=== PATIENT | male | born 1960 | race African-American/Black ===

== ENCOUNTER 2019-05-21 08:45 | Inpatient (IN) | payer BC, OTHER ==
[2019-05-21 09:21] VITALS: BMI 27.4
--- NOTE | 2019-06-04 12:42 | HP ---
HISTORY OF PRESENT ILLNESS: The patient is a 59-year-old male, who has a several-month history of progressive right hip and groin pain without injury. He describes weightbearing pain, which has progressed almost to the point of incapacitation requiring use of crutches, it causes severe pain and causes difficulty walking, getting dressed, and sleeping. He has had progressive symptoms despite rest, restriction of activities, and use of pain medication. PAST MEDICAL HISTORY: The patient also has a history of degenerative arthritis of both knees. He denies any other major medical problems. MEDICATIONS: He is currently requiring no specific routine medications. ALLERGIES: NO KNOWN ALLERGIES. PHYSICAL EXAMINATION: GENERAL: Reveals a healthy male. HEENT: Unremarkable. NECK: Supple. CHEST: Clear. HEART: Regular rate and rhythm. ABDOMEN: Soft, nontender. RECTAL: Deferred. GENITAL: Deferred. EXTREMITIES: Pertinent findings with the right hip. Leg lengths are equal. There is tenderness in the anterior hip. There is a right antalgic gait. There is decreased range of motion of the right hip and groin, pain with internal rotation of the hip. Neurovascular exam is intact. DIAGNOSTIC STUDIES: X-rays of the right hip reveal degenerative changes and a probable subchondral fracture with early collapse of the femoral head consistent with avascular necrosis. There are also vascular calcifications. X-rays of both knees reveal [id number] collapse medially of both knees with vascular calcifications. IMPRESSION: 1. Avascular necrosis and secondary degenerative arthritis, right hip. 2. Degenerative arthritis, both knees. PLAN: Right total hip replacement. He may ultimately require a total knee replacement. The nature of the surgery, length of recovery, and potential complications such as infection, loss of motion, incomplete relief, neurovascular injury, thromboembolic phenomena, leg-length discrepancy, possible transfusion, need for revision have been discussed in detail. Job ID: [id number] [facility]
[2019-06-08] MEDS ORDERED: Midazolam HCl 2 mg/2 ml Vial ONE (08:08)
[2019-06-08] MEDS ORDERED: Fentanyl 100 MCG/2 ML VIAL ONE ×3 (08:08→11:52)
[2019-06-08] MEDS ORDERED: Sodium Chloride 0.9% 100 ML ONE (08:21)
[2019-06-08] MEDS ORDERED: Tranexamic Acid 1,000 MG/10 ML VIAL ONE ×2 (08:21→11:29)
[2019-06-08] MEDS ORDERED: Promethazine HCl 25 MG/ML VIAL IM PRN ×2 (09:30→10:45)
[2019-06-08] MEDS ORDERED: Zolpidem Tartrate 5 MG TAB PO PRN ×2 (09:30→12:35)
[2019-06-08] MEDS ORDERED: Naloxone HCl 0.4 mg/ml Vial IV PRN (09:30)
[2019-06-08] MEDS ORDERED: HYDROcodone/Acetaminophen 5/325 mg Tablet PO PRN ×2 (09:30)
[2019-06-08] MEDS ORDERED: Fentanyl 5 mcg/Bup 0.075% Cadd 100 ML EPIDURAL SCH (09:30)
[2019-06-08] MEDS ORDERED: diphenhydrAMINE 50 MG/ML VIAL IM PRN (09:30)
[2019-06-08] MEDS ORDERED: traMADol HCl 50 MG TAB PO PRN ×3 (09:30→12:35)
[2019-06-08] MEDS ORDERED: diphenhydrAMINE 25 MG CAP PO PRN ×2 (09:30→12:35)
[2019-06-08] MEDS ORDERED: Naloxone HCl 0.4 mg/ml Vial IVP PRN (09:30)
[2019-06-08] MEDS ORDERED: Hydrocerin (Eucerin) Cream 120 gm Jar TOP PRN (09:30)
[2019-06-08] MEDS ORDERED: Promethazine HCl 25 MG SUPP PR PRN (09:30)
[2019-06-08] MEDS ORDERED: diphenhydrAMINE 50 MG/ML VIAL IVP PRN (09:30)
[2019-06-08] MEDS ORDERED: Ondansetron PF 4 MG/2 ML Vial IVP PRN ×2 (09:30→12:35)
[2019-06-08] MEDS ORDERED: Ropivacaine 0.2% HCl/PF 20 ML ONE (09:34)
[2019-06-08] MEDS ORDERED: Ondansetron HCl/PF 4 MG/2 ML Vial IVP PRN (10:45)
[2019-06-08] MEDS ORDERED: Promethazine HCl 25 MG/ML VIAL SLOW IVP PRN ×2 (10:45→12:35)
[2019-06-08] MEDS ORDERED: Tranexamic Acid 1,000 MG in Sodium Chloride 0.9% 100 ML IVPB SCH ×2 (11:30→12:35)
--- NOTE | 2019-06-08 11:57 | RAD ---
XR Hip Rt 2-3 View: 06/08/2019 11:22 AM CLINICAL INDICATION: Postop COMPARISON: 03/18/2019 FINDINGS: Right hip prosthesis is present, without hardware complication. There is adjacent soft tissue air. IMPRESSION: Postoperative right hip, without acute hardware complication.
[2019-06-08] MEDS ORDERED: Ketorolac Tromethamine 30 MG/ML VIAL ONE (11:59)
[2019-06-08] MEDS ORDERED: Labetalol HCl 100 MG/20 ML VIAL ONE (12:00)
[2019-06-08] MEDS ORDERED: Labetalol HCl 100 MG/20 ML VIAL SLOW IVP PRN (12:01)
[2019-06-08] MEDS ORDERED: Labetalol HCl 100 MG/20 ML VIAL SLOW IVP SCH (12:15)
[2019-06-08] MEDS ORDERED: Fentanyl 100 MCG/2 ML VIAL SLOW IVP PRN ×2 (12:35)
[2019-06-08] MEDS ORDERED: HYDROcodone/Acetaminophen 10/325 mg Tablet PO PRN (12:35)
[2019-06-08] MEDS ORDERED: Acetaminophen 325 MG TAB PO PRN (12:35)
[2019-06-08] MEDS: Ketorolac Tromethamine 30 MG/ML VIAL IVP SCH ×3 (13:03→23:40)
[2019-06-08] MEDS: Ketorolac Tromethamine 30 MG/ML VIAL IM SCH ×3 (13:03→23:47)
[2019-06-08] MEDS: Sodium Chloride 0.9% 1,000 ML IV SCH ×2 (13:04→23:40)
--- NOTE | 2019-06-08 13:53 | OP ---
DATE OF PROCEDURE: 06/08/2019 BATH MIX OPERATOR: Jennyfer Lloyd PA-C ANESTHESIA: General plus epidural. PREOPERATIVE DIAGNOSIS: Avascular necrosis and degenerative arthritis, right hip. POSTOPERATIVE DIAGNOSIS: Avascular necrosis and degenerative arthritis, right hip. PROCEDURE PERFORMED: Right total hip replacement with uncemented Mccalla Titanium acetabular component, 56 mm with X3 polyethylene liner and uncemented Niru Accolade II femoral stem #6 with 132-degree neck angle trunnion and -2.5 mm neck length 36-mm delta ceramic femoral head. DESCRIPTION OF PROCEDURE: After satisfactory anesthesia was induced in supine position, sequential compression device was placed on the nonoperative leg throughout the procedure. The patient was then placed in the lateral decubitus position and this position held with a hip positioning device. The patient's right hip was then prepped and draped in routine sterile fashion. Hip was posterolateral. A lateral curvilinear incision was centered over the greater trochanter, carried down through the subcutaneous tissues and bleeding points controlled with Bovie cautery. IT band and gluteal fascia was split in line with skin incision. A direct lateral approach to the hip joint was accomplished by dividing the anterior third of the gluteus medius and minimus tendons with Bovie cautery reflecting the single flap anteromedially along with the vastus lateralis. Anterior capsulectomy was performed. The hip was dislocated anteriorly. There was marked degenerative arthritis of the hip and evidence of collapse of the femoral head consistent with avascular necrosis. The femoral neck was osteotomized with oscillating saw using trial prosthesis as a guide. The acetabulum was exposed and cleaned of all soft tissue debris and rim osteophytes. It was then reamed down to bleeding subchondral bone to a total of 55 mm. It was felt that a 56-mm Niru Titanium acetabular completely could be placed in a press-fit fashion. The permanent component was then hammered in position. There was good fit and stability of the component and the permanent X3 polyethylene liner was snapped into position. The proximal femur was then exposed and opened with a box osteotome and rasped in sequence to accept a #6 Accolade II femoral rasp. Trial reduction with 132-degree neck angle trunnion and a -2.5 metal neck length 36 mm femoral head gave appropriate size, fit, and stability. The hip was again dislocated anteriorly and trial components were removed. The permanent #6 Accolade II femoral stem was then hammered in its position. There was again good fit and stability of the component. The permanent -2.5 mm neck length 36 mm delta ceramic femoral head was then placed on the trunnion and the hip again reduced and found to be stable. The hip was copiously irrigated with pulsatile lavage. The abductors were then repaired with interrupted #2 Vicryl. The IT band and gluteal fascia were closed with interrupted #2 Vicryl and a running #2 Quill. Subcutaneous tissues were closed with running 0 Quill suture and the skin closed with a running subcuticular 3-0 Monoderm and Surgicel skin adhesive. A sterile dressing was applied and the patient turned to the supine position with pillow placed between his legs. Sequential compression devices were placed on his operated leg and he was awakened and taken to the recovery room in stable condition. There were no apparent intraoperative complications. The estimated blood loss was 300 mL. Job ID: [id number]
[2019-06-08] MEDS: HYDROcodone/Acetaminophen 10/325 mg Tablet PO PRN ×2 (13:58→20:28)
[2019-06-08] MEDS ORDERED: PHENYLEPHRINE-NS 100 MCG/ML 10 ML SYRINGE ONE (15:09)
[2019-06-08] MEDS ORDERED: Lidocaine 1.5% w/Epi 1:200K 30 ML VIAL (Epid Use) ONE (15:09)
[2019-06-08] MEDS ORDERED: Ondansetron PF 4 MG/2 ML Vial ONE (15:09)
[2019-06-08] MEDS ORDERED: Rocuronium Bromide 10 MG/ML (10ML VIAL) ONE (15:09)
[2019-06-08] MEDS ORDERED: PROPOFOL 200 MG/20 ML VIAL ONE (15:09)
[2019-06-08] MEDS ORDERED: Lidocaine 1% PF 5 ML VIAL ONE (15:09)
[2019-06-08] MEDS ORDERED: Glycopyrrolate 0.2 MG/ML 5 ML SYRINGE ONE (15:09)
--- NOTE | 2019-06-08 15:24 | PDOC.HOSPP ---
- Subjective Encounter Date: 06/08/19 Encounter Time: 15:00 Subjective: Consultation for medical management post right hip replacement today performed by Dr. Escobedo. Denies past medical history other than diabetes which he says is controlled via lifestyle. Denies ever being on medication for diabetes. Reports sudden onset of right hip pain which progressively gotten worse to the point it interfered with his ADLs. Reports pain limited his mobility. 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 PCP is Ny Powers. - Objective Vital Signs & Weight: Vital Signs (12 hours) Temp Pulse Resp BP Pulse Ox 06/08/19 14:58 83 146/92 H 06/08/19 12:40 98.2 F 76 20 160/88 H 95 Weight Weight 74.843 kg I&O: 06/07/19 06/08/19 06/09/19 06:59 06:59 06:59 Intake Total 200 Output Total 200 Balance 0 Hospitalist ROS - Review of Systems Constitutional: reports: weakness, other. denies: fever, chills, sweats, malaise Eyes: denies: pain, vision change, conjunctivae inflammation, eyelid inflammation, redness, other ENT: denies: ear pain, ear discharge, nose pain, nose discharge, nose congestion , mouth pain, mouth swelling, throat pain, throat swelling, other Respiratory: denies: cough, dry, shortness of breath, hemoptysis, SOB with excertion, pleuritic pain, sputum, wheezing, other Cardiovascular: denies: chest pain, palpitations, orthopnea, paroxysmal noc. dyspnea, edema, light headedness, other Gastrointestinal: denies: nausea, vomiting, abdominal pain, diarrhea, constipation, melena, hematochezia, other Genitourinary: denies: dysuria, frequency, incontinence, hematuria, retention, other Musculoskeletal: reports: leg pain (Reports worsening right hip pain, sudden onset, denies injury/trauma.) Skin: denies: rash, lesions, kiel, bruising, other Neurological: denies: weakness, numbness, incoordination, change in speech, confusion, seizures, other - Medication Medications: Active Medications Generic Name Dose Route Start Last Admin Trade Name Freq PRN Reason Stop Dose Admin Hydrocodone Bitart/Acetaminophen 2 tab 11/04/19 12:35 06/08/19 13:58 [place] 10/325 PO 2 tab Q4H PRN Administration Severe Pain (7-10) Sodium Chloride 1,000 mls @ 100 mls/hr 06/08/19 12:35 06/08/19 13:04 Normal Saline 0.9% IV Not Given .Q10H ELLY Ketorolac Tromethamine 30 mg 06/08/19 12:00 06/08/19 13:03 Toradol IVP 06/10/19 06:01 Not Given Q6HR ELLY Ketorolac Tromethamine 30 mg 06/08/19 12:35 06/08/19 13:03 Toradol IM 06/10/19 12:36 Not Given Q6HR ELLY - Exam Eye: PERRL ENT: moist mucosa Neck: supple, no lymphadenopathy Heart: RRR Respiratory: CTAB Gastrointestinal: soft Extremities - other findings: Right hip bandage, dry and intact Skin: normal turgor Neurological: normal sensation to touch, no focal deficits Musculoskeletal: normal strength Psychiatric: normal affect, A&O x 3 Hosp A/P (1) Diabetes mellitus Code(s): E11.9 - TYPE 2 DIABETES MELLITUS WITHOUT COMPLICATIONS Status: Chronic Qualifiers: Diabetes mellitus type: type 2 (2) Pain, joint, hip, right Code(s): M25.551 - PAIN IN RIGHT HIP Status: Acute - Plan old records reviewed/req, plan discussed w/ family Accuchecks ACHS, will monitor blood sugar, sliding scale as needed. Basic metobolic panel and CBC in AM. Thank you for the consultation, we will follow patient through this admission.
[2019-06-08] MEDS ORDERED: Dextrose 50% Abboject 50 ML SYRINGE SLOW IVP PRN (15:36)
[2019-06-08] MEDS ORDERED: HumaLOG 300 UNITS/3 ML VIAL SC PRN (15:36)
[2019-06-08] MEDS ORDERED: Dextrose 5% in Water 1,000 ML IV PRN (15:36)
[2019-06-08] MEDS: CEFAZOLIN 2 GM in Premix Bag 1 BAG IVPB SCH ×2 (16:26→23:39)
[2019-06-08] MEDS ORDERED: Vancomycin HCl 1 GM in Premix Bag 1 BAG IVPB SCH (20:00)
[2019-06-08] MEDS: Ferrous Gluconate 324 MG TAB PO SCH (20:29)
[2019-06-08] MEDS: Senokot S 8.6-50 MG TAB PO SCH (20:29)
[2019-06-08] MEDS: Aspirin 81 mg Enteric Coated Tablet PO SCH (20:29)
[2019-06-09 04:38] LABS: Hemoglobin 14.1 g/dL (14.0-18.0); Mean Corpuscular HGB CONC 34.1 g/dL (32.0-36.0); Mean Corpuscular Hemoglobin 31.9 pg (27.0-31.0); Mean Corpuscular Volume 93.7 fL (78.0-98.0); Mean Platelet Volume 6.8 fL (7.4-10.4); Platelet Count 239 thou/uL (130-400); RBC Distribution Width 12.4 % (11.5-14.5); Red Blood Cell (RBC) Count 4.42 mill/uL (4.70-6.10); White Blood Cell (WBC) Count 11.3 thou/uL (4.8-10.8)
[2019-06-09] MEDS: Ketorolac Tromethamine 30 MG/ML VIAL IVP SCH ×4 (06:02→23:19)
[2019-06-09] MEDS: Ketorolac Tromethamine 30 MG/ML VIAL IM SCH ×4 (06:02→23:01)
[2019-06-09] MEDS: Sodium Chloride 0.9% 1,000 ML IV SCH ×3 (07:20→23:01)
--- NOTE | 2019-06-09 08:29 | PRG ---
DATE OF SERVICE: 06/09/2019 SUBJECTIVE: is a 59-year-old male who is postop day 1 from right total hip arthroplasty. He is doing relatively well. He has no complaints of pain. He is comfortable. Epidural is working well. OBJECTIVE: VITAL SIGNS: Temperature 98.7, pulse 95, respiratory rate 18 and nonlabored, and blood pressure 138/84. GENERAL: He is alert and oriented to person, place, time, and situation, grossly nonfocal, responsive and appropriate with examiner. EXTREMITIES: His incision is clean. No strikethrough. No leg length discrepancies or malrotation. LABORATORY DATA: Hemoglobin and hematocrit 14.1 and 41.4. IMPRESSION: A 59-year-old male postop day 1 right total hip arthroplasty. PLAN: Continue current care. Probable discharge tomorrow after discontinuing Wahl and epidural. Job ID: [id number]
[2019-06-09] MEDS: Ferrous Gluconate 324 MG TAB PO SCH ×2 (08:58→19:52)
[2019-06-09] MEDS: Senokot S 8.6-50 MG TAB PO SCH ×2 (08:58→19:51)
[2019-06-09] MEDS: Aspirin 81 mg Enteric Coated Tablet PO SCH ×2 (08:58→19:52)
[2019-06-09] MEDS: Multivitamin W/ Minerals 1 TAB PO SCH (08:58)
[2019-06-09] MEDS: HYDROcodone/Acetaminophen 10/325 mg Tablet PO PRN (16:17)
--- NOTE | 2019-06-09 16:38 | PDOC.EVN ---
Event Note - Event Note Event Note: Pt sen for followup re: management of medical comorbidities. Denies any complaints. VSS. S1, S2, RRR. Lungs CTA. Pt s/p R hip surgery. No acute medical issues, will sign off. Please reconsult if needed.
[2019-06-09] MEDS ORDERED: Sodium Chloride 0.9% 1,000 ML IV SCH (18:45)
[2019-06-09 19:03] LABS: Hemoglobin 13.8 g/dL (14.0-18.0); Mean Corpuscular HGB CONC 35.3 g/dL (32.0-36.0); Mean Corpuscular Hemoglobin 32.1 pg (27.0-31.0); Platelet Count 215 thou/uL (130-400); Red Blood Cell (RBC) Count 4.29 mill/uL (4.70-6.10); White Blood Cell (WBC) Count 11.3 thou/uL (4.8-10.8)
[2019-06-09 19:21] LABS: ALT (SGPT) 11 U/L (8-55); AST (SGOT) 48 U/L (5-34); Albumin 3.4 g/dL (3.5-5.0); Alkaline Phosphatase 71 U/L (40-110); Anion Gap 16 mmol/L (10-20); BUN (Urea Nitrogen) 16 mg/dL (8.4-25.7); Bilirubin, Total 1.4 mg/dL (0.2-1.2); Calc. Creatinine Clearance 73 mL/min (70-130); Calcium 8.9 mg/dL (7.8-10.44); Carbon Dioxide 22 mmol/L (22-29); Chloride 98 mmol/L (98-107); Estimated GFR-MDRD 78; Globulin 4.3 g/dL (2.4-3.5); Glucose 94 mg/dL (70-105); Potassium 3.9 mmol/L (3.5-5.1); Protein, Total 7.7 g/dL (6.0-8.3); Sodium 132 mmol/L (136-145)
[2019-06-09 19:28] LABS: Band 2 % (5-11); Lymphocytes 11 % (21-51); MDiff Complete? YES; Monocytes 5 % (0-10); Neutrophil 79 % (42-75); Platelet Morphology Comment Appears Adequate; RBC Morphology Normal; Reactive Lymphocytes 2 % (0-10)
--- NOTE | 2019-06-09 20:07 | PDOC.EVN ---
Event Note - Event Note Event Note: Saw patient today around 1800 for tachycardia, low grade fever and drop in O2, nurse reports in 80's on RA, 93% on 2L NC. Patient in no apparent distress, feels warm to the touch, last tylenol given 2 hours prior for pain with the hydrocodone. Epidural removed today and patient states pain has increased today with movement. Dressing to right hip is dry and intact. Orders: 1L NS, CXR, UA (Patient has mcwilliams), CBC, Comp met, lactic acid ... will continue to monitor
[2019-06-09 20:18] LABS: Bilirubin Negative (Negative); Blood, Urine 2+ (Negative); Clarity Clear (Clear); Glucose, Urine (Dipstick) Normal (Negative); Leukocyte 75 Leu/uL (Negative); Nitrite Negative (Negative); Protein, Urine (Dipstick) 50 mg/dL (Neg-Trace); RBC/HPF Greater than 50 HPF (0-3); Squamous Epithelial 0-3 HPF (0-3); Urobilinogen Normal mg/dL (Less than 2)
[2019-06-09 20:20] LABS: Bacteria/HPF 1+ HPF (None Seen)
[2019-06-09 20:21] LABS: Urine Culture Reflex Yes Yes
[2019-06-10 04:23] LABS: Mean Corpuscular HGB CONC 34.9 g/dL (32.0-36.0); Mean Corpuscular Hemoglobin 32.3 pg (27.0-31.0); Mean Corpuscular Volume 92.6 fL (78.0-98.0); Platelet Count 177 thou/uL (130-400); Red Blood Cell (RBC) Count 3.72 mill/uL (4.70-6.10); White Blood Cell (WBC) Count 8.3 thou/uL (4.8-10.8)
[2019-06-10] MEDS: Ketorolac Tromethamine 30 MG/ML VIAL IVP SCH (05:27)
[2019-06-10 05:29] VITALS: TEMP 98.4
[2019-06-10] MEDS: Ketorolac Tromethamine 30 MG/ML VIAL IM SCH ×2 (06:10→14:20)
--- NOTE | 2019-06-10 07:49 | RAD ---
EXAM: Single view of the chest HISTORY: Decreased oxygen saturation COMPARISON: None FINDINGS: Single view of the chest shows a normal sized cardiomediastinal silhouette. Atelectasis is seen in the left lung base. There is no evidence of consolidation, mass, or pleural effusion. The bones are unremarkable. IMPRESSION: Left basilar atelectasis.
[2019-06-10 08:13] VITALS: BP 117/77
[2019-06-10] MEDS: Senokot S 8.6-50 MG TAB PO SCH (08:42)
[2019-06-10] MEDS: Aspirin 81 mg Enteric Coated Tablet PO SCH (08:42)
[2019-06-10] MEDS: Ferrous Gluconate 324 MG TAB PO SCH (08:42)
[2019-06-10] MEDS: Multivitamin W/ Minerals 1 TAB PO SCH (08:43)
[2019-06-10] MEDS ORDERED: HYDROcodone/Acetaminophen 10/325 mg Tablet PO PRN ×2 (12:32)
== END 2019-06-10 16:30 | disposition home or self-care (01) | DRG 470 ==
LOC: SURG A 06-08 07:01 → SJJU 06-08 12:29
PROVIDERS: ADMIT Orthopaedic Surgery; ATTEND Orthopaedic Surgery
PROC: 0SR904A Replacement of Right Hip Joint with Ceramic on Polyethylene Synthetic Substitute, Uncemented, Open Approach (ICD-10-PCS; principal; 2019-06-08)
DX: M16.11 Unilateral primary osteoarthritis, right hip (principal); M87.851 Other osteonecrosis, right femur; M17.0 Bilateral primary osteoarthritis of knee; E11.9 Type 2 diabetes mellitus without complications; R00.0 Tachycardia, unspecified; R50.9 Fever, unspecified
CPT/HCPCS: 36415; 36416; 71045; 80053; 81001; 83605; 85027; 86850; 86900; 86901; 87086; J0690; J1885; J2001; J2250; J2405; J2704; J2795; J3010; J3370; J3490

== ENCOUNTER 2019-05-21 08:55 | Outpatient (CLI) | payer BC, OTHER ==
[2019-05-21 10:41] LABS: #Basophils 0.1 thou/uL (0.0-0.2); #Eosinphils 0.3 thou/uL (0.0-0.7); #Lymphocytes 1.5 thou/uL (1.20-3.40); #Monocytes 0.8 thou/uL (0.11-0.59); %Basophils 1.1 % (0.0-1.0); %Eosinophils 5.2 % (0.0-10.0); %Lymphocytes 26.7 % (21.0-51.0); %Monocytes 13.9 % (0.0-10.0); %Neutrophils 53.2 % (42.0-75.0); Hemoglobin 16.9 g/dL (14.0-18.0); Mean Corpuscular HGB CONC 33.6 g/dL (32.0-36.0); Mean Corpuscular Hemoglobin 31.2 pg (27.0-31.0); Mean Corpuscular Volume 92.7 fL (78.0-98.0); Mean Platelet Volume 7.1 fL (7.4-10.4); Platelet Count 245 thou/uL (130-400); RBC Distribution Width 12.9 % (11.5-14.5); Red Blood Cell (RBC) Count 5.43 mill/uL (4.70-6.10); White Blood Cell (WBC) Count 5.6 thou/uL (4.8-10.8)
[2019-05-21 10:48] LABS: Prothrombin Time 13.6 SEC (12.0-14.7)
[2019-05-21 10:55] LABS: Bacteria/HPF None Seen HPF (None Seen); Bilirubin Negative (Negative); Blood, Urine Negative (Negative); Clarity Clear (Clear); Glucose, Urine (Dipstick) Normal (Negative); Leukocyte Negative Leu/uL (Negative); Nitrite Negative (Negative); Protein, Urine (Dipstick) Negative (Neg-Trace); RBC/HPF 0-3 HPF (0-3); Squamous Epithelial None Seen HPF (0-3); Urobilinogen Normal mg/dL (Less than 2); WBC/HPF 0-3 HPF (0-3)
[2019-05-21 11:01] LABS: Anion Gap 14 mmol/L (10-20); BUN (Urea Nitrogen) 6 mg/dL (8.4-25.7); Calc. Creatinine Clearance 0 mL/min (70-130); Calcium 10.2 mg/dL (7.8-10.44); Carbon Dioxide 26 mmol/L (22-29); Chloride 99 mmol/L (98-107); Estimated GFR-MDRD Greater than 90; Glucose 93 mg/dL (70-105); Potassium 3.8 mmol/L (3.5-5.1); Sodium 135 mmol/L (136-145)
== END 2019-05-21 08:56 | disposition home or self-care (01) ==
LOC: LABBT 08:55
PROVIDERS: ATTEND Orthopaedic Surgery
DX: Z01.818 Encounter for other preprocedural examination (principal); M16.11 Unilateral primary osteoarthritis, right hip; M87.051 Idiopathic aseptic necrosis of right femur
CPT/HCPCS: 80048; 81001; 85025; 85610; 87081; 93005; 93010

== ENCOUNTER 2020-10-14 14:56 | Inpatient (IN) | payer BC, OTHER ==
[~2020-10-14 14:56] MED LIST: Iopamidol-370 76% 500 ML 1 ML ONE
[2020-10-14 15:21] LABS: #Lymphocytes 1.1 thou/uL (1.20-3.40); #Monocytes 0.7 thou/uL (0.11-0.59); #Neutrophils 11.1 thou/uL (1.40-6.50); %Basophils 0.2 % (0.0-1.0); %Eosinophils 0.2 % (0.0-10.0); %Lymphocytes 8.5 % (21.0-51.0); %Monocytes 5.3 % (0.0-10.0); %Neutrophils 85.8 % (42.0-75.0); Hemoglobin 16.9 g/dL (14.0-18.0); Mean Corpuscular HGB CONC 34.2 g/dL (32.0-36.0); Mean Corpuscular Hemoglobin 31.9 pg (27.0-31.0); Mean Corpuscular Volume 93.3 fL (78.0-98.0); Mean Platelet Volume 7.1 fL (7.4-10.4); Platelet Count 237 thou/uL (130-400); RBC Distribution Width 13.2 % (11.5-14.5); Red Blood Cell (RBC) Count 5.31 mill/uL (4.70-6.10); White Blood Cell (WBC) Count 12.9 thou/uL (4.8-10.8)
[2020-10-14 15:44] LABS: ALT (SGPT) 11 U/L (8-55); AST (SGOT) 25 U/L (5-34); Albumin 3.5 g/dL (3.5-5.0); Alkaline Phosphatase 63 U/L (40-110); Anion Gap 18 mmol/L (10-20); BUN (Urea Nitrogen) 6 mg/dL (8.4-25.7); Bilirubin, Total 0.8 mg/dL (0.2-1.2); Calc. Creatinine Clearance 0 mL/min (70-130); Calcium 8.9 mg/dL (7.8-10.44); Carbon Dioxide 21 mmol/L (22-29); Chloride 101 mmol/L (98-107); Globulin 4.5 g/dL (2.4-3.5); Glucose 143 mg/dL (70-105); Potassium 3.6 mmol/L (3.5-5.1); Sodium 136 mmol/L (136-145)
[2020-10-14] MEDS ORDERED: Morphine 4 MG/ML VIAL ONE (15:44)
[2020-10-14] MEDS ORDERED: Ondansetron PF 4 MG/2 ML Vial ONE (15:44)
[2020-10-14 15:57] LABS: Lipase 4157 U/L (8-78)
[2020-10-14] MEDS ORDERED: Lactated Ringer's 1,000 ML IV SCH (18:45)
[2020-10-14] MEDS: Lactated Ringer's 1,000 ML IV SCH (19:45)
[2020-10-14 20:20] VITALS: BMI 27.3
[2020-10-14] MEDS: Morphine 4 MG/ML VIAL SLOW IVP PRN (21:05)
[2020-10-14] MEDS: Ondansetron PF 4 MG/2 ML Vial IVP PRN (21:05)
[2020-10-15] MEDS: hydrALAZINE 20 MG/ML VIAL SLOW IVP PRN ×2 (00:03→06:10)
[2020-10-15] MEDS: Lactated Ringer's 1,000 ML IV SCH ×4 (03:38→20:31)
[2020-10-15 05:00] LABS: SARS-CoV-2 PCR by NAA Not Detected (NotDetected)
[2020-10-15] MEDS: Morphine 4 MG/ML VIAL SLOW IVP PRN ×3 (06:08→20:31)
[2020-10-15] MEDS: Ondansetron PF 4 MG/2 ML Vial IVP PRN ×2 (06:08→13:21)
[2020-10-15 06:34] LABS: Hemoglobin 16.7 g/dL (14.0-18.0); Mean Corpuscular HGB CONC 34.7 g/dL (32.0-36.0); Mean Corpuscular Hemoglobin 32.4 pg (27.0-31.0); Mean Corpuscular Volume 93.3 fL (78.0-98.0); Mean Platelet Volume 7.4 fL (7.4-10.4); Platelet Count 202 thou/uL (130-400); RBC Distribution Width 13.3 % (11.5-14.5); Red Blood Cell (RBC) Count 5.16 mill/uL (4.70-6.10); White Blood Cell (WBC) Count 12.7 thou/uL (4.8-10.8)
[2020-10-15 06:48] LABS: ALT (SGPT) 10 U/L (8-55); AST (SGOT) 24 U/L (5-34); Albumin 3.3 g/dL (3.5-5.0); Alkaline Phosphatase 63 U/L (40-110); Anion Gap 17 mmol/L (10-20); BUN (Urea Nitrogen) 7 mg/dL (8.4-25.7); Bilirubin, Total 0.9 mg/dL (0.2-1.2); Calc. Creatinine Clearance 111 mL/min (70-130); Carbon Dioxide 21 mmol/L (22-29); Chloride 104 mmol/L (98-107); Globulin 4.3 g/dL (2.4-3.5); Glucose 104 mg/dL (70-105); Potassium 3.8 mmol/L (3.5-5.1); Protein, Total 7.6 g/dL (6.0-8.3); Sodium 138 mmol/L (136-145)
[2020-10-15 06:49] LABS: Band 2 % (5-11); Lymphocytes 7 % (21-51); MDiff Complete? YES; Monocytes 5 % (0-10); Neutrophil 86 % (42-75)
[2020-10-15] MEDS: Morphine 2 MG/ML VIAL SLOW IVP PRN (08:29)
[2020-10-15] MEDS: Enoxaparin Sodium 40 MG/0.4 ML SYRINGE SC SCH (08:30)
[2020-10-15] MEDS: Lisinopril 10 MG TAB PO SCH (10:09)
[2020-10-15] MEDS ORDERED: Lisinopril 10 MG TAB PO SCH (10:15)
[2020-10-15 16:31] LABS: Hemoglobin A1c 5.2 % (4.0-6.0)
[2020-10-15] MEDS: Ondansetron ODT 4 MG TAB PO PRN (20:31)
[2020-10-16] MEDS: Lactated Ringer's 1,000 ML IV SCH ×4 (06:25→23:54)
[2020-10-16] MEDS: Ondansetron ODT 4 MG TAB PO PRN (06:25)
[2020-10-16] MEDS: Morphine 4 MG/ML VIAL SLOW IVP PRN (06:26)
[2020-10-16] MEDS ORDERED: Metoprolol Tartrate 5 MG/5 ML VIAL ONE (06:59)
[2020-10-16] MEDS ORDERED: Adenosine 6 MG/2 ML VIAL IVP SCH ×2 (07:00→10:15)
[2020-10-16 07:11] LABS: INR-International Normal Ratio 1.2; PTT 29.2 sec (22.9-36.1); Prothrombin Time 15.1 sec (12.0-14.7)
[2020-10-16 07:13] LABS: ALT (SGPT) 10 U/L (8-55); AST (SGOT) 19 U/L (5-34); Alkaline Phosphatase 55 U/L (40-110); Anion Gap 14 mmol/L (10-20); BUN (Urea Nitrogen) 9 mg/dL (8.4-25.7); Bilirubin, Total 1.6 mg/dL (0.2-1.2); Calc. Creatinine Clearance 112 mL/min (70-130); Calcium 8.9 mg/dL (7.8-10.44); Carbon Dioxide 22 mmol/L (22-29); Chloride 103 mmol/L (98-107); Globulin 4.3 g/dL (2.4-3.5); Glucose 86 mg/dL (70-105); Potassium 3.1 mmol/L (3.5-5.1); Protein, Total 7.3 g/dL (6.0-8.3); Sodium 136 mmol/L (136-145)
[2020-10-16 07:24] LABS: ALT (SGPT) 8 U/L (8-55); AST (SGOT) 22 U/L (5-34); Albumin 3.2 g/dL (3.5-5.0); Alkaline Phosphatase 59 U/L (40-110); Anion Gap 17 mmol/L (10-20); BUN (Urea Nitrogen) 10 mg/dL (8.4-25.7); Bilirubin, Total 1.7 mg/dL (0.2-1.2); Calc. Creatinine Clearance 109 mL/min (70-130); Calcium 8.6 mg/dL (7.8-10.44); Carbon Dioxide 20 mmol/L (22-29); Chloride 104 mmol/L (98-107); Glucose 84 mg/dL (70-105); Potassium 3.5 mmol/L (3.5-5.1); Protein, Total 7.2 g/dL (6.0-8.3); Sodium 137 mmol/L (136-145)
[2020-10-16 07:28] LABS: Troponin I 0.023 ng/mL (< 0.028)
[2020-10-16 07:34] LABS: Magnesium 1.7 mg/dL (1.6-2.6); Phosphorus 3.1 mg/dL (2.3-4.7)
[2020-10-16 08:02] LABS: Hemoglobin 16.8 g/dL (14.0-18.0); Mean Corpuscular Hemoglobin 30.4 pg (27.0-31.0); Mean Platelet Volume 7.8 fL (7.4-10.4); Platelet Count 191 thou/uL (130-400); RBC Distribution Width 13.5 % (11.5-14.5); Red Blood Cell (RBC) Count 5.52 mill/uL (4.70-6.10); White Blood Cell (WBC) Count 10.3 thou/uL (4.8-10.8)
[2020-10-16 08:03] LABS: Band 1 % (5-11); Eosinophils 2 % (0-10); Lymphocytes 21 % (21-51); MDiff Complete? YES; Monocytes 7 % (0-10); Neutrophil 69 % (42-75)
[2020-10-16] MEDS: Enoxaparin Sodium 40 MG/0.4 ML SYRINGE SC SCH (08:51)
[2020-10-16] MEDS: Lisinopril 10 MG TAB PO SCH (08:51)
[2020-10-16] MEDS ORDERED: Magnesium 2 GM/50 ML 2 GM in Premix Bag 1 BAG IVPB SCH (09:30)
[2020-10-16] MEDS ORDERED: PHOS-NAK 1 PKT PACK PO SCH (09:30)
[2020-10-16] MEDS: Adenosine 6 MG/2 ML VIAL ONE ×2 (09:44→09:45)
[2020-10-16] MEDS ORDERED: Diltiazem 125 MG in Sodium Chloride 0.9% 100 ML IVPB SCH (10:00)
[2020-10-16] MEDS: Amiodarone 450 MG in Dextrose 5% in Water 250 ML IVPB SCH ×2 (12:26→21:44)
[2020-10-16 15:01] LABS: Magnesium 2.3 mg/dL (1.6-2.6); Phosphorus 3.7 mg/dL (2.3-4.7)
[2020-10-16 15:05] LABS: Troponin I 0.047 ng/mL (< 0.028)
[2020-10-16] MEDS: Ondansetron PF 4 MG/2 ML Vial IVP PRN (15:47)
[2020-10-16] MEDS: Morphine 2 MG/ML VIAL SLOW IVP PRN (23:54)
[2020-10-17] MEDS: Morphine 2 MG/ML VIAL SLOW IVP PRN ×2 (03:52→20:56)
[2020-10-17 04:47] LABS: Hemoglobin 15.1 g/dL (14.0-18.0); Mean Corpuscular HGB CONC 34.3 g/dL (32.0-36.0); Mean Corpuscular Hemoglobin 32.2 pg (27.0-31.0); Mean Corpuscular Volume 93.8 fL (78.0-98.0); Mean Platelet Volume 7.9 fL (7.4-10.4); Platelet Count 175 thou/uL (130-400); RBC Distribution Width 13.2 % (11.5-14.5); Red Blood Cell (RBC) Count 4.69 mill/uL (4.70-6.10); White Blood Cell (WBC) Count 10.4 thou/uL (4.8-10.8)
[2020-10-17 04:59] LABS: Phosphorus 3.2 mg/dL (2.3-4.7)
[2020-10-17 05:06] LABS: ALT (SGPT) 8 U/L (8-55); AST (SGOT) 16 U/L (5-34); Albumin 2.9 g/dL (3.5-5.0); Alkaline Phosphatase 47 U/L (40-110); Anion Gap 13 mmol/L (10-20); BUN (Urea Nitrogen) 11 mg/dL (8.4-25.7); Bilirubin, Total 1.7 mg/dL (0.2-1.2); Calc. Creatinine Clearance 111 mL/min (70-130); Calcium 8.7 mg/dL (7.8-10.44); Carbon Dioxide 24 mmol/L (22-29); Chloride 101 mmol/L (98-107); Globulin 4.1 g/dL (2.4-3.5); Glucose 87 mg/dL (70-105); Magnesium 2.1 mg/dL (1.6-2.6); Potassium 3.4 mmol/L (3.5-5.1); Sodium 135 mmol/L (136-145)
[2020-10-17 05:22] LABS: Band 1 % (5-11); Lymphocytes 10 % (21-51); MDiff Complete? YES; Monocytes 8 % (0-10); Neutrophil 81 % (42-75)
[2020-10-17] MEDS: Lactated Ringer's 1,000 ML IV SCH ×4 (07:26→17:12)
[2020-10-17] MEDS ORDERED: Potassium Chloride 20 MEQ TAB PO SCH (07:30)
[2020-10-17] MEDS: Ondansetron PF 4 MG/2 ML Vial IVP PRN ×2 (07:35→13:46)
[2020-10-17] MEDS: Lisinopril 10 MG TAB PO SCH (08:43)
[2020-10-17] MEDS: Enoxaparin Sodium 40 MG/0.4 ML SYRINGE SC SCH (08:43)
[2020-10-17 10:54] LABS: Cardiac Risk 4.9 (Less than 4.5)
[2020-10-17] MEDS: Carvedilol 3.125 MG TAB PO SCH (17:12)
[2020-10-17] MEDS ORDERED: Chlorthalidone 25 MG TAB PO SCH (21:00)
[2020-10-18] MEDS: Lactated Ringer's 1,000 ML IV SCH ×5 (03:01→17:55)
[2020-10-18 05:20] LABS: Hemoglobin 14.7 g/dL (14.0-18.0); Mean Corpuscular HGB CONC 33.9 g/dL (32.0-36.0); Mean Corpuscular Hemoglobin 31.8 pg (27.0-31.0); Mean Corpuscular Volume 93.7 fL (78.0-98.0); Mean Platelet Volume 7.8 fL (7.4-10.4); Platelet Count 173 thou/uL (130-400); Red Blood Cell (RBC) Count 4.62 mill/uL (4.70-6.10); White Blood Cell (WBC) Count 7.1 thou/uL (4.8-10.8)
[2020-10-18 05:26] LABS: ALT (SGPT) 7 U/L (8-55); AST (SGOT) 19 U/L (5-34); Albumin 2.8 g/dL (3.5-5.0); Alkaline Phosphatase 46 U/L (40-110); Anion Gap 10 mmol/L (10-20); BUN (Urea Nitrogen) 9 mg/dL (8.4-25.7); Bilirubin, Total 1.3 mg/dL (0.2-1.2); Calc. Creatinine Clearance 124 mL/min (70-130); Calcium 8.6 mg/dL (7.8-10.44); Carbon Dioxide 26 mmol/L (22-29); Chloride 101 mmol/L (98-107); Glucose 81 mg/dL (70-105); Potassium 3.2 mmol/L (3.5-5.1); Protein, Total 6.8 g/dL (6.0-8.3); Sodium 134 mmol/L (136-145)
[2020-10-18 06:23] LABS: Band 3 % (5-11); Lymphocytes 8 % (21-51); MDiff Complete? YES; Monocytes 8 % (0-10); Neutrophil 81 % (42-75)
[2020-10-18] MEDS ORDERED: Potassium Chloride 20 MEQ TAB PO SCH (07:00)
[2020-10-18 07:54] LABS: Magnesium 1.9 mg/dL (1.6-2.6); Phosphorus 2.8 mg/dL (2.3-4.7)
[2020-10-18] MEDS: Lisinopril 10 MG TAB PO SCH (08:50)
[2020-10-18] MEDS: Enoxaparin Sodium 40 MG/0.4 ML SYRINGE SC SCH (08:50)
[2020-10-18] MEDS: Magnesium Oxide 400 MG TAB PO SCH (08:51)
[2020-10-18] MEDS: Folic Acid 1 MG TAB PO SCH (08:51)
[2020-10-18] MEDS: Multivit, Chewable SF 1 TAB PO SCH (08:51)
[2020-10-18] MEDS: Carvedilol 3.125 MG TAB PO SCH ×2 (08:51→16:03)
[2020-10-18] MEDS: Thiamine 100 MG TAB PO SCH (08:51)
[2020-10-18] MEDS ORDERED: Chlorthalidone 25 MG TAB PO SCH (21:00)
[2020-10-19] MEDS: Lactated Ringer's 1,000 ML IV SCH (04:10)
[2020-10-19 04:56] LABS: Hemoglobin 13.7 g/dL (14.0-18.0); Mean Corpuscular Hemoglobin 32.4 pg (27.0-31.0); Mean Corpuscular Volume 92.6 fL (78.0-98.0); Platelet Count 177 thou/uL (130-400); Red Blood Cell (RBC) Count 4.24 mill/uL (4.70-6.10); White Blood Cell (WBC) Count 6.7 thou/uL (4.8-10.8)
[2020-10-19 05:25] LABS: ALT (SGPT) 9 U/L (8-55); AST (SGOT) 22 U/L (5-34); Albumin 2.7 g/dL (3.5-5.0); Alkaline Phosphatase 47 U/L (40-110); Anion Gap 13 mmol/L (10-20); BUN (Urea Nitrogen) 9 mg/dL (8.4-25.7); Bilirubin, Total 1.2 mg/dL (0.2-1.2); Calc. Creatinine Clearance 122 mL/min (70-130); Calcium 8.5 mg/dL (7.8-10.44); Carbon Dioxide 22 mmol/L (22-29); Chloride 100 mmol/L (98-107); Globulin 3.7 g/dL (2.4-3.5); Glucose 67 mg/dL (70-105); Potassium 3.1 mmol/L (3.5-5.1); Protein, Total 6.4 g/dL (6.0-8.3); Sodium 132 mmol/L (136-145)
[2020-10-19 05:33] LABS: Eosinophils 2 % (0-10); Lymphocytes 18 % (21-51); MDiff Complete? YES; Monocytes 7 % (0-10); Neutrophil 72 % (42-75); Reactive Lymphocytes 1 % (0-10)
[2020-10-19] MEDS: Folic Acid 1 MG TAB PO SCH (08:13)
[2020-10-19] MEDS: Multivit, Chewable SF 1 TAB PO SCH (08:13)
[2020-10-19] MEDS: Thiamine 100 MG TAB PO SCH (08:13)
[2020-10-19] MEDS: Magnesium Oxide 400 MG TAB PO SCH (08:13)
[2020-10-19] MEDS: Carvedilol 3.125 MG TAB PO SCH (08:13)
[2020-10-19] MEDS: Enoxaparin Sodium 40 MG/0.4 ML SYRINGE SC SCH (08:13)
[2020-10-19] MEDS: Lisinopril 10 MG TAB PO SCH (08:13)
[2020-10-19] MEDS ORDERED: Potassium Chloride 20 MEQ TAB PO SCH ×3 (08:30→12:00)
[2020-10-19 12:20] VITALS: BP 130/75; TEMP 98.5
== END 2020-10-19 13:30 | disposition home or self-care (01) | DRG 439 ==
LOC: ERS 14:56 → T4-B 17:56 → UNDOADMIN 18:00 → 2NO 10-16 06:47
PROVIDERS: ADMIT Family Medicine; ATTEND Family Medicine
DX: K85.90 Acute pancreatitis without necrosis or infection, unspecified (principal); I47.1 Supraventricular tachycardia; Z20.822 Contact with and (suspected) exposure to COVID-19; M19.90 Unspecified osteoarthritis, unspecified site; F17.210 Nicotine dependence, cigarettes, uncomplicated; Z96.641 Presence of right artificial hip joint; I10 Essential (primary) hypertension; F10.10 Alcohol abuse, uncomplicated; E87.6 Hypokalemia; R00.1 Bradycardia, unspecified
CPT/HCPCS: 36415; 36416; 71045; 74177; 80053; 80061; 83036; 83615; 83690; 83735; 83880; 84100; 84443; 84484; 85007; 85025; 85027; 85610; 85730; 87040; 87635; 93005; 93010; 93306; 96374; 96375; J0153; J0282; J0360; J1650; J2270; J2405; J3475; J3490; J7070; Q0162; Q9967; U0003; U0005